=== PATIENT | female | born 1975 | race Caucasian/White ===

== ENCOUNTER → 2018-07-25 | Outpatient (CLI) | payer OTHER | LOC: COL.RAD 09:38 | DX: N81.10 Cystocele, unspecified (principal); Z98.890 Other specified postprocedural states | CPT/HCPCS: Q9967 ==

== ENCOUNTER → 2019-12-13 | Outpatient (CLI) | payer OTHER | LOC: COL.RAD 07:51 | DX: G43.009 Migraine without aura, not intractable, without status migrainosus (principal); R20.2 Paresthesia of skin ==

== ENCOUNTER → 2020-01-09 | Outpatient (CLI) | payer OTHER | LOC: COL.CARD 09:29 | DX: R20.2 Paresthesia of skin (principal); R29.898 Other symptoms and signs involving the musculoskeletal system; R42 Dizziness and giddiness ==